=== PATIENT | male | born 1990 | race Hispanic/Latino ===

== ENCOUNTER 2021-10-11 23:51 | Observation (INO) | payer SELFPAY ==
[2021-10-12 01:22] VITALS: BMI 30.4
[2021-10-12] MEDS ORDERED: Ondansetron PF 4 MG/2 ML Vial IVP PRN (01:50)
[2021-10-12] MEDS ORDERED: Acetaminophen 325 MG TAB PO PRN (01:50)
[2021-10-12] MEDS ORDERED: Lorazepam 2 MG/ML VIAL IM PRN (02:08)
[2021-10-12] MEDS ORDERED: Lorazepam 1 MG TAB PO PRN (02:08)
[2021-10-12] MEDS ORDERED: Electrolyte Replacement Protocol 1 EACH FS SCH (02:15)
[2021-10-12 04:38] LABS: #Basophils 0.1 thou/uL (0.0-0.2); #Eosinphils 0.2 thou/uL (0.0-0.7); #Lymphocytes 2.7 thou/uL (1.20-3.40); #Monocytes 0.5 thou/uL (0.11-0.59); #Neutrophils 4.2 thou/uL (1.40-6.50); %Basophils 0.7 % (0.0-1.0); %Eosinophils 2.2 % (0.0-10.0); %Lymphocytes 35.6 % (21.0-51.0); %Monocytes 6.4 % (0.0-10.0); %Neutrophils 55.1 % (42.0-75.0); Hemoglobin 11.7 g/dL (14.0-18.0); Mean Corpuscular HGB CONC 31.7 g/dL (32.0-36.0); Mean Corpuscular Hemoglobin 25.2 pg (27.0-31.0); Mean Corpuscular Volume 79.3 fL (78.0-98.0); Mean Platelet Volume 7.7 fL (7.4-10.4); Platelet Count 257 thou/uL (130-400); RBC Distribution Width 16.6 % (11.5-14.5); Red Blood Cell (RBC) Count 4.67 mill/uL (4.70-6.10); White Blood Cell (WBC) Count 7.6 thou/uL (4.8-10.8)
[2021-10-12 05:06] LABS: Anion Gap 14 mmol/L (10-20); BUN (Urea Nitrogen) 4 mg/dL (8.9-20.6); Calc. Creatinine Clearance 210 mL/min (70-130); Calcium 7.7 mg/dL (7.8-10.44); Carbon Dioxide 24 mmol/L (22-29); Chloride 109 mmol/L (98-107); Glucose 95 mg/dL (70-105); Magnesium 1.7 mg/dL (1.6-2.6); Phosphorus 3.2 mg/dL (2.3-4.7); Sodium 143 mmol/L (136-145)
[2021-10-12] MEDS ORDERED: Magnesium 2 GM/50 ML 2 GM in Premix Bag 1 BAG IVPB SCH (06:00)
[2021-10-12] MEDS ORDERED: Morphine 2 MG/ML VIAL SLOW IVP PRN (08:04)
[2021-10-12] MEDS ORDERED: Morphine 4 MG/ML VIAL SLOW IVP PRN (08:11)
[2021-10-12 08:30] VITALS: BP 125/78; TEMP 98.7
[2021-10-12] MEDS ORDERED: Thiamine HCl 200 MG/2 ML VIAL SLOW IVP SCH (09:00)
[2021-10-12] MEDS ORDERED: Enoxaparin Sodium 40 MG/0.4 ML SYRINGE SC SCH (09:00)
[2021-10-12] MEDS ORDERED: Multivit, Therapeutic 1 TAB PO SCH (09:00)
[2021-10-12] MEDS ORDERED: Folic Acid 1 MG TAB PO SCH (09:00)
[2021-10-13] MEDS ORDERED: Lorazepam 1 MG TAB PO PRN (02:08)
[2021-10-14] MEDS ORDERED: Lorazepam 1 MG TAB PO PRN (02:08)
[2021-10-15] MEDS ORDERED: Lorazepam 0.5 MG TAB PO PRN (02:08)
[2021-10-15] MEDS ORDERED: Thiamine 100 MG TAB PO SCH (09:00)
== END 2021-10-12 10:34 | disposition home or self-care (01) ==
LOC: 2NO 10-12 01:18
PROVIDERS: ADMIT Internal Medicine; ATTEND Internal Medicine
DX: E87.6 Hypokalemia (principal); S01.511A Laceration without foreign body of lip, initial encounter; F10.129 Alcohol abuse with intoxication, unspecified; Z87.891 Personal history of nicotine dependence; W22.8XXA Striking against or struck by other objects, initial encounter; Y90.8 Blood alcohol level of 240 mg/100 ml or more
CPT/HCPCS: 36415; 80048; 83735; 84100; 85025; 96372; 96374; 96375; G0378; J1650; J2270; J3411; J3475